=== PATIENT | male | born 1975 | race Caucasian/White ===

== ENCOUNTER 2022-02-07 15:16 | Emergency (ER) | payer OTHER ==
[2022-02-07] MEDS ORDERED: CETIRIZINE HCL 5 MG TABLET ONE (16:26)
[2022-02-07] MEDS ORDERED: DIAZEPAM 5 MG TABLET ONE (16:27)
[2022-02-07] MEDS ORDERED: FAMOTIDINE 20 MG TAB ONE (16:27)
--- NOTE | 2022-02-07 18:16 | EDPHYS ---
Physician Documentation [facility] Name: Mahamed Miranda Age: 47 yrs Sex: Male : 1975 Arrival Date: 02/07/2022 Time: 15:18 Bed 9 Private MD: ED Physician Subhash Higgins HPI: 02/07 16:21 This 47 yrs old Male presents to ER via Ambulatory with complaints of Breathing snw Difficulty. 16:21 The patient has shortness of breath at rest, with light activity. Onset: The snw symptoms/episode began/occurred gradually, 4 day(s) ago, and became persistent. Duration: The symptoms are continuous. Associated signs and symptoms: Pertinent positives: pain to left shoulder and neck. Severity of symptoms: At their worst the symptoms were moderate. The patient has experienced similar episodes in the past. The patient has not recently seen a physician, and does not have an established primary care provider, just [facility] from [place]. Historical: - Allergies: 15:38 Ibuprofen; aa5 - PMHx: 15:38 Asthma; Diabetes mellitus; COPD; aa5 - PSHx: 15:38 None; aa5 - Immunization history:: Adult Immunizations unknown. - Social history:: Smoking status: Patient reports the use of cigarette tobacco products, 4 cigarettes a day . ROS: 16:20 Constitutional: Negative for fever, chills, and weight loss, Eyes: Negative for injury, snw pain, redness, and discharge, ENT: Negative for injury, pain, and discharge, Neck: Negative for injury, pain, and swelling, Cardiovascular: Negative for chest pain, palpitations, and edema, Abdomen/GI: Negative for abdominal pain, nausea, vomiting, diarrhea, and constipation, Back: Negative for injury and pain, : Negative for injury, bleeding, discharge, and swelling, Skin: Negative for injury, rash, and discoloration, Neuro: Negative for headache, weakness, numbness, tingling, and seizure, Psych: Negative for depression, anxiety, suicide ideation, homicidal ideation, and hallucinations. 16:20 Respiratory: Positive for cough, shortness of breath, at rest. 16:20 MS/extremity: Positive for decreased range of motion, tenderness, of the left neck and shoulder. Exam: 16:13 Constitutional: This is a well developed, well nourished patient who is awake, alert, snw and in no acute distress. Head/Face: Normocephalic, atraumatic. Eyes: Pupils equal round and reactive to light, extra-ocular motions intact. Lids and lashes normal. Conjunctiva and sclera are non-icteric and not injected. Cornea within normal limits. Periorbital areas with no swelling, redness, or edema. Neck: Trachea midline, no thyromegaly or masses palpated, and no cervical lymphadenopathy. Supple, full range of motion without nuchal rigidity, or vertebral point tenderness. No Meningismus. Chest/axilla: Normal chest wall appearance and motion. Nontender with no deformity. No lesions are appreciated. Cardiovascular: Regular rate and rhythm with a normal S1 and S2. No gallops, murmurs, or rubs. Normal PMI, no JVD. No pulse deficits. Abdomen/GI: Soft, non-tender, with normal bowel sounds. No distension or tympany. No guarding or rebound. No evidence of tenderness throughout. Back: No spinal tenderness. No costovertebral tenderness. Full range of motion. Skin: Warm, dry with normal turgor. Normal color with no rashes, no lesions, and no evidence of cellulitis. Neuro: Awake and alert, GCS 15, oriented to person, place, time, and situation. Cranial nerves II-XII grossly intact. Motor strength 5/5 in all extremities. Sensory grossly intact. Cerebellar exam normal. Normal gait. Psych: Awake, alert, with orientation to person, place and time. Behavior, mood, and affect are within normal limits. 16:13 ENT: Posterior pharynx: erythema, that is moderate. 16:13 Respiratory: the patient does not display signs of respiratory distress, Respirations: normal, Breath sounds: bronchial sounds, that are moderate, are heard in the right middle lobe and right lower lobe. 16:13 Musculoskeletal/extremity: Extremities: grossly normal except: noted in the left arm: decreased ROM, Circulation is intact in all extremities. Vital Signs: 15:37 BP 127 / 87; Pulse 85; Resp 20 S; Temp 97.9(TE); Pulse Ox 99% on R/A; Weight 108.86 kg aa5 (R); Height 6 ft. 5 in. (195.58 cm) (R); 15:37 Body Mass Index 28.46 (108.86 kg, 195.58 cm) aa5 MDM: 16:05 Patient medically screened. snw 16:12 Data reviewed: vital signs, nurses notes. Data interpreted: Pulse oximetry: on room air snw is 99 %. Interpretation: normal. 02/07 16:12 Order name: Strep; Complete Time: 18:10 snw 02/07 16:25 Order name: Glucose, Ancillary Testing; Complete Time: 16:31 EDMS 02/07 18:09 Order name: Throat Culture EDMS 02/07 16:12 Order name: FSBS; Complete Time: 16:13 snw Administered Medications: 16:18 Drug: Valium (diazepam) 5 mg Route: PO; aa5 18:45 Follow up: Response: No adverse reaction aa5 16:18 Drug: Pepcid (famotidine) 20 mg Route: PO; aa5 18:45 Follow up: Response: No adverse reaction aa5 16:18 Drug: ZyrTEC - Cetirizine 10 mg Route: PO; aa5 18:45 Follow up: Response: No adverse reaction aa5 Point of Care Testing: Blood Glucose: 16:13 Blood Glucose: 175 mg/dL; aa5 Ranges: Critical Glucose Levels:Adult <50 mg/dl or >400 mg/dl <40 mg/dl or >180 mg/dl Disposition Summary: 02/07/22 18:15 Discharge Ordered Location: Home snw Condition: Stable snw Diagnosis - Muscle spasm snw - Allergic rhinitis, unspecified snw - Patient's unintentional underdosing of medication regimen for other reason snw Followup: snw - With: Emergency Department - When: As needed - Reason: Worsening of condition Followup: snw - With: Private Physician - When: 2 - 3 days - Reason: Recheck today's complaints, Continuance of care, Re-evaluation by your physician Discharge Instructions: - Discharge Summary Sheet snw - Cervical Radiculopathy snw - Muscle Strain snw - Allergic Rhinitis, Adult snw Forms: - Medication Reconciliation Form snw - Thank You Letter snw - Antibiotic Education snw - Prescription Opioid Use snw - Work release form iw Prescriptions: - Jardiance 10 mg Oral tablet - take 1 tablet by ORAL route once daily in the morning; 30 tablet; Refills: 0, snw Product Selection Permitted - fenofibrate 160 mg Oral tablet - take 1 tablet by ORAL route once daily; 30 tablet; Refills: 0, Product snw Selection Permitted - Neurontin 300 mg Oral Capsule - take 1 capsule by ORAL route At bedtime; 20 capsule; Refills: 0, Product snw Selection Permitted - Zyrtec 10 mg Oral Tablet - take 1 tablet by ORAL route once daily As needed; 20 tablet; Refills: 0, snw Product Selection Permitted - Pepcid 20 mg Oral Tablet - take 1 tablet by ORAL route once daily; 20 tablet; Refills: 0, Product snw Selection Permitted - albuterol sulfate 90 mcg/actuation Inhalation HFA aerosol inhaler - inhale 2 puff by INHALATION route every 4-6 hours; 1 Inhaler; Refills: 0, snw Product Selection Permitted Signatures: Dispatcher [employer] Cristiane Hernandez, PATTERNMAKER PRESSURE CAST-C PATTERNMAKER PRESSURE CAST-Rezaw Gertrude Diggs, RN RN aa5
--- NOTE | 2022-02-07 18:16 | ER ---
Nurse's Notes [facility] Name: Mahamed Miranda Age: 47 yrs Sex: Male : 1975 Arrival Date: 02/07/2022 Time: 15:18 Bed 9 Private MD: Diagnosis: Muscle spasm;Allergic rhinitis, unspecified;Patient's unintentional underdosing of medication regimen for other reason Presentation: 02/07 15:37 Chief complaint: Patient states: pain to left side of neck radiating to left side of aa5 chest that began 3-4 days ago, pt also reports wheezing and hx of asthma. Coronavirus screen: shortness of breath. Ebola Screen: Patient denies travel to an Ebola-affected area in the 21 days before illness onset. Initial Sepsis Screen: Does the patient meet any 2 criteria? No. Patient's initial sepsis screen is negative. Does the patient have a suspected source of infection? No. Patient's initial sepsis screen is negative. Risk Assessment: Do you want to hurt yourself or someone else? Patient reports no desire to harm self or others. Onset of symptoms was January 2022. 15:37 Method Of Arrival: Ambulatory aa5 15:37 Acuity: ISMAEL 3 aa5 Historical: - Allergies: 15:38 Ibuprofen; aa5 - PMHx: 15:38 Asthma; Diabetes mellitus; COPD; aa5 - PSHx: 15:38 None; aa5 - Immunization history:: Adult Immunizations unknown. - Social history:: Smoking status: Patient reports the use of cigarette tobacco products, 4 cigarettes a day . Assessment: 16:18 Reassessment: Patient is alert, oriented x 3, equal unlabored respirations, skin aa5 warm/dry/pink. 18:45 Reassessment: Patient is alert, oriented x 3, equal unlabored respirations, skin aa5 warm/dry/pink. Vital Signs: 15:37 BP 127 / 87; Pulse 85; Resp 20 S; Temp 97.9(TE); Pulse Ox 99% on R/A; Weight 108.86 kg aa5 (R); Height 6 ft. 5 in. (195.58 cm) (R); 15:37 Body Mass Index 28.46 (108.86 kg, 195.58 cm) aa5 ED Course: 15:18 Patient arrived in ED. rg4 15:23 Cristiane Mariano FNP-C [facility] snw 15:23 Subhash Higgins MD is Attending Physician. snw 15:36 Arm band placed on. aa5 15:37 Triage completed. aa5 16:18 Strep swab sent to lab. aa5 18:45 No provider procedures requiring assistance completed. Patient did not have IV access aa5 during this emergency room visit. Administered Medications: 16:18 Drug: Valium (diazepam) 5 mg Route: PO; aa5 18:45 Follow up: Response: No adverse reaction aa5 16:18 Drug: Pepcid (famotidine) 20 mg Route: PO; aa5 18:45 Follow up: Response: No adverse reaction aa5 16:18 Drug: ZyrTEC - Cetirizine 10 mg Route: PO; aa5 18:45 Follow up: Response: No adverse reaction aa5 Medication: 18:45 VIS not applicable for this client. aa5 Point of Care Testing: Blood Glucose: 16:13 Blood Glucose: 175 mg/dL; aa5 Ranges: Outcome: 18:15 Discharge ordered by . snw 18:45 Discharged to home ambulatory. aa5 18:45 Condition: stable 18:45 Discharge instructions given to patient, Instructed on discharge instructions, follow up and referral plans. medication usage, Demonstrated understanding of instructions, follow-up care, medications, Prescriptions given X x6 18:47 Patient left the ED. aa5 Signatures: Cristiane Mariano FNP-C FNP-Gertrude Michelle RN RN aa5 Judy Ly rg4
[2022-02-09 07:26] VITALS: BP 127/87; TEMP 97.9; O2SAT 99
== END 2022-02-07 18:47 | disposition home or self-care (01) ==
LOC: ER 15:16
DX: M62.838 Other muscle spasm (principal); J30.9 Allergic rhinitis, unspecified; Z91.128 Patient's intentional underdosing of medication regimen for other reason; J44.9 Chronic obstructive pulmonary disease, unspecified; F17.210 Nicotine dependence, cigarettes, uncomplicated; Z88.6 Allergy status to analgesic agent
CPT/HCPCS: 82947; 87070; 87081; 99283

== ENCOUNTER 2022-05-05 04:43 | Emergency (ER) | payer OTHER ==
--- NOTE | 2022-05-05 05:16 | EDPHYS ---
Physician Documentation [facility] Name: Mahamed Miranda Age: 47 yrs Sex: Male : 1975 Arrival Date: 05/05/2022 Time: 04:48 Bed 17 Private MD: ED Physician Subhash Higgins HPI: 05/05 05:12 This 47 yrs old Male presents to ER via Ambulatory with complaints of Facial mehul Swelling, Ear Pain, Mouth Problem. 05:12 The patient presents with pain. The complaints affect the upper left second molar. mehul Onset: The symptoms/episode began/occurred this morning. Modifying factors: The symptoms are alleviated by nothing, the symptoms are aggravated by nothing. Associated signs and symptoms: The patient has no apparent associated signs or symptoms. Severity of symptoms: At their worst the symptoms were mild in the emergency department the symptoms are unchanged. The patient has experienced similar episodes in the past, several times. Historical: - Allergies: 05:01 Ibuprofen; aa9 - Home Meds: 05:01 Albuterol Inhl [Active]; Jardiance oral [Active]; aa9 - PMHx: 05:01 Asthma; COPD; diabetes mellitus; aa9 - PSHx: 05:01 None; aa9 - Immunization history:: Client reports receiving the 2nd dose of the Covid vaccine. - Social history:: Smoking status: Patient denies any tobacco usage or history of. ROS: 05:13 Constitutional: Negative for fever, chills, and weight loss, Eyes: Negative for injury, mehul pain, redness, and discharge, Neck: Negative for injury, pain, and swelling, Cardiovascular: Negative for chest pain, palpitations, and edema, Respiratory: Negative for shortness of breath, cough, wheezing, and pleuritic chest pain, Abdomen/GI: Negative for abdominal pain, nausea, vomiting, diarrhea, and constipation, Back: Negative for injury and pain, : Negative for injury, bleeding, discharge, and swelling, MS/Extremity: Negative for injury and deformity, Skin: Negative for injury, rash, and discoloration, Neuro: Negative for headache, weakness, numbness, tingling, and seizure, Psych: Negative for depression, anxiety, suicide ideation, homicidal ideation, and hallucinations, Allergy/Immunology: Negative for hives, rash, and allergies, Endocrine: Negative for neck swelling, polydipsia, polyuria, polyphagia, and marked weight changes, Hematologic/Lymphatic: Negative for swollen nodes, abnormal bleeding, and unusual bruising. 05:13 ENT: Positive for dental pain, Teeth pain Exam: 05:13 Constitutional: This is a well developed, well nourished patient who is awake, alert, mehul and in no acute distress. Eyes: Pupils equal round and reactive to light, extra-ocular motions intact. Lids and lashes normal. Conjunctiva and sclera are non-icteric and not injected. Cornea within normal limits. Periorbital areas with no swelling, redness, or edema. ENT: Nares patent. No nasal discharge, no septal abnormalities noted. Tympanic membranes are normal and external auditory canals are clear. Oropharynx with no redness, swelling, or masses, exudates, or evidence of obstruction, uvula midline. Mucous membranes moist. Neck: Trachea midline, no thyromegaly or masses palpated, and no cervical lymphadenopathy. Supple, full range of motion without nuchal rigidity, or vertebral point tenderness. No Meningismus. Chest/axilla: Normal chest wall appearance and motion. Nontender with no deformity. No lesions are appreciated. Cardiovascular: Regular rate and rhythm with a normal S1 and S2. No gallops, murmurs, or rubs. Normal PMI, no JVD. No pulse deficits. Respiratory: Lungs have equal breath sounds bilaterally, clear to auscultation and percussion. No rales, rhonchi or wheezes noted. No increased work of breathing, no retractions or nasal flaring. Abdomen/GI: Soft, non-tender, with normal bowel sounds. No distension or tympany. No guarding or rebound. No evidence of tenderness throughout. Back: No spinal tenderness. No costovertebral tenderness. Full range of motion. Skin: Warm, dry with normal turgor. Normal color with no rashes, no lesions, and no evidence of cellulitis. MS/ Extremity: Pulses equal, no cyanosis. Neurovascular intact. Full, normal range of motion. Neuro: Awake and alert, GCS 15, oriented to person, place, time, and situation. Cranial nerves II-XII grossly intact. Motor strength 5/5 in all extremities. Sensory grossly intact. Cerebellar exam normal. Normal gait. Psych: Awake, alert, with orientation to person, place and time. Behavior, mood, and affect are within normal limits. 05:13 Head/face: Noted is swelling, tenderness, that is mild, of the upper left second molar. Vital Signs: 04:59 BP 119 / 75; Pulse 84; Resp 20 S; Temp 98.2(O); Pulse Ox 95% on R/A; Weight 108.86 kg aa9 (R); Height 6 ft. 5 in. (195.58 cm) (R); 04:59 Body Mass Index 28.46 (108.86 kg, 195.58 cm) aa9 MDM: 04:54 Patient medically screened. [place] 05:14 Differential diagnosis: dental caries, dental abscess. Data reviewed: vital signs, [place] nurses notes. Data interpreted: cutter banana room: rate is 84 beats/min, rhythm is regular, Pulse oximetry: on room air. Test interpretation: by ED physician or midlevel provider: ECG. Counseling: I had a detailed discussion with the patient and/or guardian regarding: the historical points, exam findings, and any diagnostic results supporting the discharge/admit diagnosis, the need for outpatient follow up, for definitive care, a dentist, an oral maxilofacial specialist. Administered Medications: 05:20 Drug: Augmentin (Amoxicillin-Clavulanate) 875 mg Route: PO; ke1 05:38 Follow up: Response: No adverse reaction ke1 Disposition Summary: 05/05/22 05:16 Discharge Ordered Location: Home mehul Problem: new mehul Symptoms: have improved mehul Condition: Stable mehul Diagnosis - Dental caries, unspecified mehul - Dental root caries mehul Followup: mehul - With: Private Physician - When: 2 - 3 days - Reason: Recheck today's complaints, Continuance of care, Re-evaluation by your physician Followup: mehul - With: Obdulio Garcia DDS - When: 2 - 3 days - Reason: Recheck today's complaints, Continuance of care, Re-evaluation by your physician Discharge Instructions: - Discharge Summary Sheet mehul - Dental Caries, Adult mehul - Dental Pain mehul - Dental Pain, [id number] mehul - Diet and Dental Disease mehul - Dental Caries, Adult, [id number] mehul Forms: - Medication Reconciliation Form mehul - Thank You Letter mehul - Antibiotic Education mehul - Prescription Opioid Use mehul - Work release form ke1 Prescriptions: - Augmentin 875-125 mg Oral Tablet - take 1 tablet by ORAL route every 12 hours for 7 days; 14 tablet; Refills: 0, [place] Product Selection Permitted - Tylenol-Codeine #3 300 mg-30 mg Oral - take 2 tablet by ORAL route every 6 hours; 20 tablet; Refills: 0, Product [place] Selection Permitted Signatures: Subhash Higgins, Jenn Ley MD, cha RN RN ke1 Shagufta Taylor RN RN aa9
--- NOTE | 2022-05-05 05:16 | ER ---
Nurse's Notes [facility] Name: Mahamed Miranda Age: 47 yrs Sex: Male : 1975 Arrival Date: 05/05/2022 Time: 04:48 Bed 17 Private MD: Diagnosis: Dental caries, unspecified;Dental root caries Presentation: 05/05 04:59 Chief complaint: Patient states: My left side of my face is swollen, I think it has aa9 something to do with my tooth pain during these past few days. Coronavirus screen: Vaccine status: Patient reports receiving the 2nd dose of the covid vaccine. Initial Sepsis Screen: Does the patient meet any 2 criteria? No. Patient's initial sepsis screen is negative. Does the patient have a suspected source of infection? No. Patient's initial sepsis screen is negative. Risk Assessment: Do you want to hurt yourself or someone else? Patient reports no desire to harm self or others. Onset of symptoms was May 05, 2022. 04:59 Method Of Arrival: Ambulatory aa9 04:59 Acuity: ISMAEL 4 aa9 05:40 Ebola Screen: No symptoms or risks identified at this time. ke1 Triage Assessment: 05:01 General: Appears comfortable, Behavior is calm, cooperative, appropriate for age. Pain: aa9 Complains of pain in mouth. EENT:. Neuro: Level of Consciousness is awake, alert, obeys commands, Oriented to person, place, time, situation. Cardiovascular: Capillary refill < 3 seconds Patient's skin is warm and dry. Respiratory: Airway is patent Respiratory effort is even, unlabored. GI: No signs and/or symptoms were reported involving the gastrointestinal system. : No signs and/or symptoms were reported regarding the genitourinary system. Derm: Skin is intact, is healthy with good turgor. Musculoskeletal: No signs and/or symptoms reported regarding the musculoskeletal system. Historical: - Allergies: 05:01 Ibuprofen; aa9 - Home Meds: 05:01 Albuterol Inhl [Active]; Jardiance oral [Active]; aa9 - PMHx: 05:01 Asthma; COPD; diabetes mellitus; aa9 - PSHx: 05:01 None; aa9 - Immunization history:: Client reports receiving the 2nd dose of the Covid vaccine. - Social history:: Smoking status: Patient denies any tobacco usage or history of. Screenin:16 [facility] ED Fall Risk Assessment (Adult) History of falling in the last 3 months, ke1 including since admission No falls in past 3 months (0 pts) Confusion or Disorientation No (0 pts) Intoxicated or Sedated No (0 pts) Impaired Gait No (0 pts) Mobility Assist Device Used No (0 pt) Altered Elimination No (0 pt) Score/Fall Risk Level 0 - 2 = Low Risk. Abuse screen: Denies threats or abuse. Nutritional screening: No deficits noted. Tuberculosis screening: No symptoms or risk factors identified. Vital Signs: 04:59 BP 119 / 75; Pulse 84; Resp 20 S; Temp 98.2(O); Pulse Ox 95% on R/A; Weight 108.86 kg aa9 (R); Height 6 ft. 5 in. (195.58 cm) (R); 04:59 Body Mass Index 28.46 (108.86 kg, 195.58 cm) aa9 ED Course: 04:48 Patient arrived in ED. ja2 04:54 Jenn Crook, ZAN is Primary Nurse. ke1 04:54 Subhash Higgins MD is Attending Physician. mehul 05:00 Triage completed. aa9 05:02 Arm band placed on. aa9 05:02 Patient has correct armband on for positive identification. Bed in low position. Call aa9 light in reach. 05:15 Obdulio Garcia DDS is Referral Physician. [facility] 05:17 No provider procedures requiring assistance completed. Patient did not have IV access ke1 during this emergency room visit. Administered Medications: 05:20 Drug: Augmentin (Amoxicillin-Clavulanate) 875 mg Route: PO; ke1 05:38 Follow up: Response: No adverse reaction ke1 Medication: 05:17 VIS not applicable for this client. ke1 Outcome: 05:16 Discharge ordered by . mehul 05:38 Discharged to home ambulatory. ke1 05:40 Condition: good ke1 05:40 Discharge instructions given to patient. 05:40 Patient left the ED. ke1 Signatures: Subhash Higgins MD MD cha Alexander, Jessica ja2 Jenn Crook RN RN ke1 Shagufta Taylor RN RN aa9
[2022-05-05] MEDS ORDERED: AMOX/K CLAV 875 MG TAB ONE (05:20)
[2022-05-05 05:45] VITALS: BP 119/75; TEMP 98.2; O2SAT 95
== END 2022-05-05 05:40 | disposition home or self-care (01) ==
LOC: ER 04:43
DX: K02.7 Dental root caries (principal); K02.9 Dental caries, unspecified; E11.9 Type 2 diabetes mellitus without complications; J44.9 Chronic obstructive pulmonary disease, unspecified; Z88.6 Allergy status to analgesic agent
CPT/HCPCS: 99283

== ENCOUNTER 2022-10-23 01:38 | Emergency (ER) | payer OTHER ==
[2022-10-23] MEDS ORDERED: DIPHENHYDRAMINE 50 MG/ML VIAL ONE (03:49)
[2022-10-23] MEDS ORDERED: KETOROLAC 30 MG/ML INJ ONE (03:49)
[2022-10-23] MEDS ORDERED: METOCLOPRAMIDE 10 MG/2mL INJ ONE (03:49)
[2022-10-23] MEDS ORDERED: NA CHLORIDE 0.9% 1,000 ML ONE (03:49)
[2022-10-23 04:04] LABS: Absolute Lymphocytes (CBC) 2.3 K/uL (0.7-4.9); Hematocrit 49.6 % (39.6-49.0); Lymphocytes % 23.9 % (15.3-44.8); MCV 91.1 fL (80-100); MPV 7.2 fL (7.6-11.3); RBC Red Blood Cell Count 5.45 M/uL (4.33-5.43)
[2022-10-23 04:25] LABS: ALT/SGPT 23 U/L (16-61); Albumin 3.7 g/dL (3.4-5.0); Alkaline Phosphatase 70 U/L (45-117); BUN Blood Urea Nitrogen 12 mg/dL (7-18); Bicarbonate 25 mEq/L (21-32); Bilirubin Total 0.3 mg/dL (0.2-1.0); Glomerular Filtration Rate 108 ml/min (=/>90); Glucose Level 160 mg/dL (74-106); Lipase 44 U/L (13-75); Potassium 3.5 mEq/L (3.5-5.1); Sodium Level 141 mEq/L (136-145); Troponin High Sensitivity 3.4 pg/mL (<58.9)
[2022-10-23 04:42] LABS: AST/SGOT < 3 U/L (15-37); Bilirubin Direct < 0.1 mg/dL (0-0.2); Bilirubin Indirect, Calculated ND mg/dL (0.2-0.8)
--- NOTE | 2022-10-23 06:25 | ER ---
Nurse's Notes [facility] Name: Mahamed Miranda Age: 47 yrs Sex: Male : 1975 Arrival Date: 10/23/2022 Time: 01:38 Bed 4 Private MD: Diagnosis: Uncontrolled diabetes, hyperglycemia, anxiety about health Presentation: 10/23 02:51 Chief complaint: Patient states: Headache, shaking began at 5pm yesterday. He is out of diabetic medication for 3 days. Coronavirus screen: Vaccine status: Patient reports receiving the 2nd dose of the covid vaccine. Ebola Screen: No symptoms or risks identified at this time. Onset of symptoms was October 21, 2022. Care prior to arrival: Medication(s) given: Tylenol. 02:51 Method Of Arrival: Ambulatory 02:51 Acuity: ISMAEL 3 03:49 Initial Sepsis Screen: Does the patient meet any 2 criteria? No. Patient's initial lg3 sepsis screen is negative. Does the patient have a suspected source of infection? No. Patient's initial sepsis screen is negative. Risk Assessment: Do you want to hurt yourself or someone else? Patient reports no desire to harm self or others. Triage Assessment: 02:51 Headache History: The patient has had previous headaches and this one is similar to previous episodes. Neuro: No deficits noted. 03:50 General: Appears in no apparent distress. uncomfortable. Pain: Pain currently is 6 out lg3 of 10 on a pain scale. Pain began 2-3 days ago. Also complains of photophobia, inability to concentrate. Historical: - Allergies: 02:58 Ibuprofen; - Home Meds: 02:58 Albuterol Inhl [Active]; Jardiance Oral [Active]; - PMHx: 02:58 Asthma; COPD; diabetes mellitus; - Immunization history:: Adult Immunizations up to date. - Social history:: Smoking status: Patient reports the use of cigarette tobacco products, denies chronic smoking, but will smoke occasionally. - Family history:: not pertinent. Screenin:48 [facility] ED Fall Risk Assessment (Adult) History of falling in the last 3 months, lg3 including since admission No falls in past 3 months (0 pts). Abuse screen: Denies threats or abuse. Denies injuries from another. Nutritional screening: No deficits noted. Tuberculosis screening: No symptoms or risk factors identified. Assessment: 03:48 General: Appears in no apparent distress. comfortable, Behavior is calm, cooperative. lg3 Pain: Complains of pain in head. Neuro: No deficits noted. Bower Agitation-Sedation Scale (RASS): 0 - Alert and Calm Level of Consciousness is awake, alert, obeys commands, Oriented to person, place, time, situation. Cardiovascular: No deficits noted. Denies chest pain, shortness of breath, Capillary refill < 3 seconds Clubbing of nail beds is absent JVD is absent Patient's skin is warm and dry. Respiratory: No deficits noted. Airway is patent Respiratory effort is even, unlabored, Respiratory pattern is regular, symmetrical. GI: No deficits noted. No signs and/or symptoms were reported involving the gastrointestinal system. Abdomen is round non-distended. : No deficits noted. No signs and/or symptoms were reported regarding the genitourinary system. EENT: No deficits noted. No signs and/or symptoms were reported regarding the EENT system. Derm: No deficits noted. No signs and/or symptoms reported regarding the dermatologic system. Skin is intact, is healthy with good turgor, Skin is dry, Skin is normal, Skin temperature is warm. Musculoskeletal: No deficits noted. No signs and/or symptoms reported regarding the musculoskeletal system. Circulation, motion, and sensation intact. Range of motion: intact in all extremities. 05:05 Reassessment: Patient appears in no apparent distress at this time. No changes from lg3 previously documented assessment. Patient and/or family updated on plan of care and expected duration. Pain level reassessed. Patient is alert, oriented x 3, equal unlabored respirations, skin warm/dry/pink. Patient states feeling better. 06:19 Reassessment: Patient appears in no apparent distress at this time. No changes from lg3 previously documented assessment. Patient and/or family updated on plan of care and expected duration. Pain level reassessed. Patient is alert, oriented x 3, equal unlabored respirations, skin warm/dry/pink. Patient states feeling better. Patient states symptoms have improved. Vital Signs: 02:51 BP 139 / 86; Pulse 84; Resp 20; Temp 97.6; Pulse Ox 99% ; Weight 104.33 kg; Height 6 kl ft. 5 in. ; Pain 8/10; 05:05 BP 136 / 84; Pulse 81; Resp 18 S; Pulse Ox 99% on R/A; lg3 06:19 BP 138 / 88; Pulse 80; Resp 18 S; Pulse Ox 99% on R/A; lg3 02:51 Body Mass Index 27.27 (104.33 kg, 195.58 cm) kl 02:51 Pain Scale: Adult kl Shelly Coma Score: 06:17 Eye Response: spontaneous(4). Motor Response: obeys commands(6). Verbal Response: sp4 oriented(5). Total: 15. ED Course: 01:41 Patient arrived in ED. ja2 02:54 Triage completed. kl 02:56 Krishan Beltrán MD is Attending Physician. sp4 03:46 Marisa Ferreira, ZAN is Primary Nurse. lg3 03:46 Inserted saline lock: 22 gauge in right antecubital area, using aseptic technique. lg3 Blood collected. 03:47 Troponin HS Sent. lg3 03:47 LFT's Sent. lg3 03:47 CBC with Diff Sent. lg3 03:47 Basic Metabolic Panel Sent. lg3 03:48 Patient has correct armband on for positive identification. Placed in gown. Bed in low lg3 position. Call light in reach. Side rails up X 1. Client placed on continuous cardiac and pulse oximetry monitoring. NIBP monitoring applied. monitor car operator on. Door closed. Noise minimized. Warm blanket given. 03:49 Arm band placed on right wrist. lg3 06:23 Joseph Ramey MD is Referral Physician. sp4 06:37 No provider procedures requiring assistance completed. IV discontinued, intact, jb4 bleeding controlled, No redness/swelling at site. Pressure dressing applied. Administered Medications: 03:47 Drug: NS 0.9% IV 1000 ml Route: IV; Rate: 1 bolus; Site: right antecubital; lg3 03:47 Drug: metoCLOPramide IVP 10 mg Route: IVP; Site: right antecubital; lg3 03:47 Drug: Ketorolac IVP 30 mg Route: IVP; Site: right antecubital; lg3 03:48 Drug: diphenhydrAMINE IVP 25 mg Route: IVP; Site: right antecubital; lg3 Outcome: 06:24 Discharge ordered by . sp4 06:36 Discharged to home ambulatory. jb4 06:36 Condition: stable 06:36 Discharge instructions given to patient, Instructed on discharge instructions, follow up and referral plans. no drinking with medication, no driving heavy equipment, medication usage, Demonstrated understanding of instructions, follow-up care, medications, Prescriptions given X 3. 06:37 Patient left the ED. jb4 Signatures: Jaci Calixto RN RN kl Bryson, James, RN RN jb4 Marisa Ferreira RN RN lg3 Leann Sweeney Sergey, MD MD sp4 Corrections: (The following items were deleted from the chart) 04:05 03:48 LIPASE+C.LAB.BRZ drawn and sent. lg3 EDMS
--- NOTE | 2022-10-23 06:25 | EDPHYS ---
Physician Documentation [facility] Name: Mahamed Miranda Age: 47 yrs Sex: Male : 1975 Arrival Date: 10/23/2022 Time: 01:38 Bed 4 Private MD: ED Physician Krishan Beltrán HPI: 10/23 02:56 This 47 yrs old Male presents to ER via Ambulatory with complaints of sp4 Problems with Blood Sugar, Headache. 06:17 This very pleasant 47-year-old male who has a history of diabetes type 2 takes sp4 Jardiance and metoprolol daily presents with anxiety about health secondary to him being out of his medicines for the past 3 days, patient developed headaches 24 hours ago also some abdominal aches, shaky hands, nausea, and feeling unwell overall , patient is here desiring his diabetes to be checked and restarted on his regular medicines.. Historical: - Allergies: 02:58 Ibuprofen; kl - Home Meds: 02:58 Albuterol Inhl [Active]; Jardiance Oral [Active]; kl - PMHx: 02:58 Asthma; COPD; diabetes mellitus; kl - Immunization history:: Adult Immunizations up to date. - Social history:: Smoking status: Patient reports the use of cigarette tobacco products, denies chronic smoking, but will smoke occasionally. - Family history:: not pertinent. ROS: 06:17 Constitutional: Negative for fever, chills, and weight loss, positive for feeling sp4 unwell. Positive for anxiety positive for bilateral hand tremors Eyes: Negative for injury, pain, redness, and discharge, ENT: Negative for injury, pain, and discharge, Neck: Negative for injury, pain, and swelling, Cardiovascular: Negative for chest pain, and edema, Respiratory: Negative for shortness of breath, cough, wheezing, and pleuritic chest pain, Abdomen/GI: Negative for nausea, vomiting, diarrhea, and constipation, positive for abdominal ache Back: Negative for injury and pain, : Negative for injury, bleeding, discharge, and swelling, MS/Extremity: Negative for injury and deformity, Skin: Negative for injury, rash, and discoloration, Neuro: positive for headache negative for weakness, numbness, tingling, and seizure, Psych: Negative for depression, anxiety, Allergy/Immunology: Negative for hives, rash, and allergies Endocrine: Negative for neck swelling, polydipsia, polyuria, polyphagia, and weight changes Hematologic/Lymphatic: Negative for swollen nodes, abnormal bleeding, and unusual bruising Exam: 06:17 Constitutional: This is a well developed, well nourished patient who is awake, alert, sp4 and in no acute distress. Head/Face: Normocephalic, atraumatic. Eyes: Pupils equal round and reactive to light, extra-ocular motions intact. Lids and lashes normal. Conjunctiva and sclera are not injected. Cornea within normal limits. Periorbital areas with no swelling, redness, or edema. ENT: Nares patent. No nasal discharge, no septal abnormalities noted. Tympanic membranes are normal and external auditory canals are clear. Oropharynx with no redness, swelling, or masses, exudates, or evidence of obstruction, uvula midline. Mucous membranes moist. Neck: Trachea midline, no thyromegaly or masses palpated, and no cervical lymphadenopathy. Supple, full range of motion without nuchal rigidity, or vertebral point tenderness. No Meningismus. Chest/axilla: Normal chest wall appearance and motion. Nontender with no deformity. No lesions are appreciated. Cardiovascular: Regular rate and rhythm with a normal S1 and S2. No gallops, murmurs, or rubs. Normal PMI, no JVD. No pulse deficits. Respiratory: Lungs have equal breath sounds bilaterally, clear to auscultation and percussion. No rales, rhonchi or wheezes noted. No increased work of breathing, no retractions or nasal flaring. Abdomen/GI: Soft, non-tender, with normal bowel sounds. No distension or tympany. No guarding or rebound. No evidence of tenderness throughout. Back: No spinal tenderness. No costovertebral tenderness. Skin: Warm, dry with normal turgor. Normal color with no rashes, no lesions, and no evidence of cellulitis. MS/ Extremity: Pulses equal, no cyanosis. Neurovascular intact. Full, normal range of motion. Neuro: Awake and alert, GCS 15, oriented to person, place, time, and situation. Cranial nerves II-XII grossly intact. Motor strength 5/5 in all extremities. Sensory grossly intact. Psych: Awake, alert, with orientation to person, place and time. Behavior, mood, and affect are within normal limits Vital Signs: 02:51 BP 139 / 86; Pulse 84; Resp 20; Temp 97.6; Pulse Ox 99% ; Weight 104.33 kg; Height 6 kl ft. 5 in. ; Pain 8/10; 05:05 BP 136 / 84; Pulse 81; Resp 18 S; Pulse Ox 99% on R/A; lg3 06:19 BP 138 / 88; Pulse 80; Resp 18 S; Pulse Ox 99% on R/A; lg3 02:51 Body Mass Index 27.27 (104.33 kg, 195.58 cm) kl 02:51 Pain Scale: Adult kl Shelly Coma Score: 06:17 Eye Response: spontaneous(4). Motor Response: obeys commands(6). Verbal Response: sp4 oriented(5). Total: 15. MDM: 02:56 Patient medically screened. sp4 06:17 Data reviewed: vital signs, nurses notes, old medical records, lab test result(s), CBC, sp4 electrolytes, hepatic panel. ED course: Patient is a 160, no sign of renal failure or electrolyte imbalance. 10/23 02:57 Order name: Basic Metabolic Panel; Complete Time: 06:11 sp4 10/23 02:57 Order name: CBC with Diff; Complete Time: 06:11 sp4 10/23 02:57 Order name: LFT's; Complete Time: 06:11 sp4 10/23 02:57 Order name: Troponin HS; Complete Time: 06:11 sp4 10/23 03:45 Order name: Glucose, Ancillary Testing; Complete Time: 06:11 EDMS 10/23 04:05 Order name: Lipase; Complete Time: 06:11 EDMS 10/23 02:57 Order name: IV Saline Lock; Complete Time: 03:47 sp4 10/23 02:57 Order name: Labs collected and sent; Complete Time: 03:47 sp4 Administered Medications: 03:47 Drug: NS 0.9% IV 1000 ml Route: IV; Rate: 1 bolus; Site: right antecubital; lg3 03:47 Drug: metoCLOPramide IVP 10 mg Route: IVP; Site: right antecubital; lg3 03:47 Drug: Ketorolac IVP 30 mg Route: IVP; Site: right antecubital; lg3 03:48 Drug: diphenhydrAMINE IVP 25 mg Route: IVP; Site: right antecubital; lg3 Disposition Summary: 10/23/22 06:24 Discharge Ordered Location: Home sp4 Problem: new sp4 Symptoms: have improved sp4 Condition: Stable sp4 Diagnosis - Uncontrolled diabetes, hyperglycemia, anxiety about health sp4 Followup: sp4 - With: Private Physician - When: 7 - 10 days - Reason: Followup: sp4 - With: Joseph Ramey MD - When: 7 - 10 days - Reason: Recheck today's complaints Discharge Instructions: - Discharge Summary Sheet sp4 - Diabetes Mellitus Basics sp4 Forms: - Work release form jb4 Prescriptions: - Fioricet 50-300-40 mg Oral capsule - take 1 capsule by ORAL route every 8 hours PRN headache; 30 caplet; Refills: 0, sp4 Product Selection Permitted - Jardiance 10 mg Oral tablet - take 1 tablet by ORAL route daily; 30 tablet; Refills: 0, Product Selection sp4 Permitted - metoprolol succinate 25 mg Oral Tablet, Extended Release 24 hr - take 1 tablet by ORAL route daily; 30 tablet; Refills: 0, Product Selection sp4 Permitted Signatures: Dispatcher [employer] EDJaci Owen, RN RN Marisa Cai RN RN lg3 Krishan Beltrán MD MD sp4 Corrections: (The following items were deleted from the chart) 04:05 03:10 LIPASE+C.LAB.BRZ ordered. EDMS EDMS
[2022-10-23 06:57] VITALS: TEMP 97.6; O2SAT 99
[2022-10-23 07:00] VITALS: BP 138/88
== END 2022-10-23 06:37 | disposition home or self-care (01) ==
LOC: ER 01:38
DX: E11.65 Type 2 diabetes mellitus with hyperglycemia (principal); F41.8 Other specified anxiety disorders; R51.9 Headache, unspecified; R11.0 Nausea; R10.9 Unspecified abdominal pain; Z91.048 Other nonmedicinal substance allergy status; J45.909 Unspecified asthma, uncomplicated; J44.9 Chronic obstructive pulmonary disease, unspecified; Z72.0 Tobacco use
CPT/HCPCS: 85025; 80048; 36415; 82947; 80076; 84484; 83690; 96375; 96374; 99285; J2765; J1200; J7030

== ENCOUNTER 2023-02-23 04:46 | Emergency (ER) | payer OTHER ==
[2023-02-23] MEDS ORDERED: IPRATROPIUM BROM 0.5MG/2.5ML ONE (05:30)
[2023-02-23] MEDS ORDERED: predniSONE 20 MG TAB ONE (05:30)
[2023-02-23] MEDS ORDERED: ALBUTEROL 2.5 MG/3 ML NEB SOL ONE (05:30)
--- NOTE | 2023-02-23 06:19 | EDPHYS ---
Physician Documentation [facility] Name: Mahamed Miranda Age: 48 yrs Sex: Male : 1975 Arrival Date: 02/23/2023 Time: 04:46 Bed 5 Private MD: ED Physician Kaela Mack HPI: 02/23 05:43 This 48 yrs old Male presents to ER via Ambulatory with complaints of heart racing. sd2 05:43 48 yo M presents with CC of feeling as if his heart is racing. He reports difficulty sd2 sleeping last night due to wheezing and issues with his asthma 2/2 allergies. 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 States recently tested negative. Denies fever, cough, CP, n/v/d. Reports his home albuterol inhaler has so he has not used it.. Historical: - Allergies: 04:57 Ibuprofen; as6 - PMHx: 04:57 Asthma; COPD; diabetes mellitus; as6 - PSHx: 04:57 None; as6 - Immunization history:: Client reports receiving the 2nd dose of the Covid vaccine. - Social history:: Smoking status: Patient reports the use of cigarette tobacco products, smokes one-half pack cigarettes per day. ROS: 05:43 Constitutional: Negative for fever, chills, and weight loss, Eyes: Negative for injury, sd2 pain, redness, and discharge, 05:43 Abdomen/GI: Negative for abdominal pain, nausea, vomiting, diarrhea. MS/Extremity: Negative for injury and deformity, Skin: Negative for injury, rash, and discoloration, Neuro: Negative for headache, numbness and tingling. 05:43 Cardiovascular: Positive for palpitations, Negative for chest pain, edema, 05:43 Respiratory: Positive for shortness of breath, wheezing, Negative for cough, dyspnea on exertion, Exam: 05:43 Constitutional: This is a well developed, well nourished patient who is awake, alert, sd2 and in no acute distress. Head/Face: Normocephalic, atraumatic. Eyes: EOMI, normal conjunctiva bilaterally Chest/axilla: Normal chest wall appearance and motion. Nontender with no deformity. Cardiovascular: Regular rate and rhythm with a normal S1 and S2. No gallops, murmurs, or rubs. 2+ distal pulses. Respiratory: Lungs have equal breath sounds bilaterally, end-expiratory wheezes present bilaterally. No increased work of breathing, no retractions or nasal flaring. Abdomen/GI: Soft, non-tender, with normal bowel sounds. No guarding or rebound. No evidence of tenderness throughout. Skin: Warm, dry with normal turgor. Normal color with no rashes, no lesions, and no evidence of cellulitis. MS/ Extremity: Pulses equal, no cyanosis. Neurovascular intact. Full, normal range of motion. Ambulatory without difficulty. Psych: Awake, alert, with orientation to person, place and time. Behavior, mood, and affect are within normal limits. 06:14 ECG was reviewed by the Attending Physician. NSR, rate 98, no STEMI criteria sd2 Vital Signs: 04:56 BP 144 / 82; Pulse 96; Resp 20 S; Temp 98.9(O); Pulse Ox 95% on R/A; Weight 104.33 kg as6 (R); Height 6 ft. 5 in. (R); Pain 0/10; 06:00 BP 123 / 59; Pulse 87; Resp 20; Pulse Ox 98% ; jj7 06:36 BP 128 / 75; Pulse 93; Resp 20; Pulse Ox 98% ; Pain 0/10; jj7 04:56 Body Mass Index 27.27 (104.33 kg, 195.58 cm) as6 04:56 Pain Scale: Adult as6 06:36 Pain Scale: Adult jj7 MDM: 04:51 Patient medically screened. sd2 06:14 Differential Diagnosis viral URI, asthma exacerbation, electrolyte abnormality, sd2 arrhythmia among others. Data reviewed: vital signs, nurses notes, lab test result(s), EKG, radiologic studies. I considered the following discharge prescriptions or medication management in the emergency department Medications were administered in the Emergency Department. See MAR. Care significantly affected by the following chronic conditions: Diabetes, Chronic Obstructive Pulmonary Disease. Counseling: I had a detailed discussion with the patient and/or guardian regarding the historical points, exam findings, and any diagnostic results supporting the discharge/admit diagnosis, lab results, radiology results, the need for outpatient follow up, to return to the emergency department if symptoms worsen or persist or if there are any questions or concerns that arise at home. Response to treatment: the patient's symptoms have markedly improved after treatment. ED course: Pt feeling improved with no further wheezing after nebulizer treatment. HR with no signs of arrhythmia on telemetry. EKG with no acute changes. Viral testing studies negative. Will discharge home with new albuterol inhaler and prednisone. Advised of continued supportive care and need for outpatient follow up. Verbalizes understanding of discharge plan and strict return precautions at this time.. 02/23 05:08 Order name: SARS-COV-2 RT PCR; Complete Time: 05:50 sd2 02/23 05:08 Order name: Flu; Complete Time: 05:50 sd2 02/23 05:08 Order name: RSV; Complete Time: 05:50 sd2 02/23 05:08 Order name: XRAY Chest (1 view) sd2 02/23 05:08 Order name: EKG - Nurse/Tech; Complete Time: 05:23 sd2 Administered Medications: 05:22 Drug: predniSONE PO 60 mg PO once Route: PO; rv 06:08 Follow up: Response: No adverse reaction jj7 05:22 Drug: DuoNeb Nebulize (3:1) (2.5 mg - 0.5 mg) 3 ml Nebulizer once Route: Nebulizer; rv 06:08 Follow up: Response: Marked relief of symptoms jj7 Disposition Summary: 02/23/23 06:18 Discharge Ordered Problem: new sd2 Symptoms: have improved sd2 Condition: Stable sd2 Diagnosis - Asthma exacerbation sd2 - Palpitations sd2 Followup: sd2 - With: Private Physician - When: 2 - 3 days - Reason: Recheck today's complaints, Continuance of care, Re-evaluation by your physician Discharge Instructions: - Discharge Summary Sheet sd2 - Palpitations sd2 - Asthma Attack sd2 - Asthma Attack Prevention, Adult sd2 Forms: - Work release form sd2 - Medication Reconciliation Form sd2 - Thank You Letter sd2 - Antibiotic Education sd2 - Prescription Opioid Use sd2 - Patient Portal Instructions sd2 - Leadership Thank You Letter sd2 Prescriptions: - albuterol sulfate 90 mcg/actuation Inhalation HFA Aerosol Inhaler - inhale 2 puff INHALATION route every 4 to 6 hours As needed as needed for sd2 bronchospasm; 1 unit; Refills: 0, Product Selection Permitted - Albuterol Sulfate 2.5 mg /3 mL (0.083 %) Inhalation Solution for Nebulization - inhale 1 unit NEBULIZATION route every 4-6 hours As needed; 30 unit; Refills: sd2 0, Product Selection Permitted - Prednisone 20 mg Oral tablet - take 2 tablets ORAL route once daily for 5 days; 10 tablet; Refills: 0, Product sd2 Selection Permitted Signatures: Dispatcher [employer] Tom Newby RN RN rv Mario Rizvi RN RN as6 Kaela Mack MD MD sd2 Renita Coon RN jj7
--- NOTE | 2023-02-23 06:19 | ER ---
Nurse's Notes [facility] Name: Mahamed Miranda Age: 48 yrs Sex: Male : 1975 Arrival Date: 02/23/2023 Time: 04:46 Bed 5 Private MD: Diagnosis: Asthma exacerbation;Palpitations Presentation: 02/23 04:58 Chief complaint: Patient states: "I woke up and felt like my heart was racing and I as6 feel short of breath". Coronavirus screen: At this time, the client does not indicate any symptoms associated with coronavirus-19. Ebola Screen: No symptoms or risks identified at this time. Initial Sepsis Screen: Does the patient meet any 2 criteria? No. Patient's initial sepsis screen is negative. Does the patient have a suspected source of infection? No. Patient's initial sepsis screen is negative. Risk Assessment: Do you want to hurt yourself or someone else? Patient reports no desire to harm self or others. Onset of symptoms was February 23, 2023. 04:58 Acuity: ISMAEL 3 as6 04:58 Method Of Arrival: Ambulatory as6 Historical: - Allergies: 04:57 Ibuprofen; as6 - PMHx: 04:57 Asthma; COPD; diabetes mellitus; as6 - PSHx: 04:57 None; as6 - Immunization history:: Client reports receiving the 2nd dose of the Covid vaccine. - Social history:: Smoking status: Patient reports the use of cigarette tobacco products, smokes one-half pack cigarettes per day. Screenin:07 [facility] ED Fall Risk Assessment (Adult) History of falling in the last 3 months, jj7 including since admission No falls in past 3 months (0 pts) Confusion or Disorientation No (0 pts) Intoxicated or Sedated No (0 pts) Impaired Gait No (0 pts) Mobility Assist Device Used No (0 pt) Altered Elimination No (0 pt) Score/Fall Risk Level 0 - 2 = Low Risk Oriented to surroundings, Maintained a safe environment. Abuse screen: Denies threats or abuse. Nutritional screening: No deficits noted. Tuberculosis screening: No symptoms or risk factors identified. Assessment: 05:07 General: Appears in no apparent distress. comfortable, Behavior is calm, cooperative, jj7 appropriate for age. Pain: Denies pain. Pain: Pain does not radiate. Pain began suddenly. Cardiovascular: No deficits noted. Respiratory: Breath sounds with wheezes. Vital Signs: 04:56 BP 144 / 82; Pulse 96; Resp 20 S; Temp 98.9(O); Pulse Ox 95% on R/A; Weight 104.33 kg as6 (R); Height 6 ft. 5 in. (R); Pain 0/10; 06:00 BP 123 / 59; Pulse 87; Resp 20; Pulse Ox 98% ; jj7 06:36 BP 128 / 75; Pulse 93; Resp 20; Pulse Ox 98% ; Pain 0/10; jj7 04:56 Body Mass Index 27.27 (104.33 kg, 195.58 cm) as6 04:56 Pain Scale: Adult as6 06:36 Pain Scale: Adult jj7 ED Course: 04:48 Patient arrived in ED. jj6 04:50 Kaela Mack MD is Attending Physician. sd2 04:57 Arm band placed on. as6 04:59 Triage completed. as6 05:07 Renita Coon RN is Primary Nurse. jj7 05:07 Patient has correct armband on for positive identification. Bed in low position. Call jj7 light in reach. Side rails up X 1. Client placed on continuous cardiac and pulse oximetry monitoring. NIBP monitoring applied. electronic device monitor on. Pulse ox on. NIBP on. 05:07 No provider procedures requiring assistance completed. Patient maintains SpO2 jj7 saturation greater than 95% on room air. 05:52 XRAY Chest (1 view) In Process Unspecified. EDMS 06:36 Provided Education on: DISCHARGE INSTRUCTIONS. jj7 06:36 Patient did not have IV access during this emergency room visit. jj7 Administered Medications: 05:22 Drug: predniSONE PO 60 mg PO once Route: PO; rv 06:08 Follow up: Response: No adverse reaction jj7 05:22 Drug: DuoNeb Nebulize (3:1) (2.5 mg - 0.5 mg) 3 ml Nebulizer once Route: Nebulizer; rv 06:08 Follow up: Response: Marked relief of symptoms jj7 Medication: 05:07 VIS not applicable for this client. jj7 Outcome: 06:18 Discharge ordered by . sd2 06:36 Discharged to home ambulatory, jj7 06:36 Condition: improved 06:36 Discharge instructions given to patient, Instructed on discharge instructions, medication usage, Demonstrated understanding of instructions, medications, Prescriptions given X 3, 06:38 Patient left the ED. jj7 Signatures: Dispatcher [employer] EDMS Tom Mendez, RN RN Bailee Huff jj6 Mario Rizvi RN RN as6 Kaela Mack MD MD sd2 Renita Coon RN RN jj7
[2023-02-23 06:44] VITALS: TEMP 98.9
[2023-02-23 06:45] VITALS: O2SAT 98
[2023-02-23 06:46] VITALS: BP 128/75
--- NOTE | 2023-02-24 10:09 | RAD REPORT ---
EXAM DESCRIPTION: RAD - Chest Single View - 02/23/2023 5:51 am CLINICAL HISTORY: The patient is 48 years old and is Male; SOB TECHNIQUE: Frontal view of the chest. COMPARISON: No relevant prior studies available. FINDINGS: Lungs: Mildly prominent interstitial markings. No consolidation. Pleural space: Unremarkable. No pneumothorax. Heart: Unremarkable. Mediastinum: Unremarkable. Bones/joints: No acute findings. IMPRESSION: Mildly prominent interstitial markings. No consolidation. Electronically signed by: Mahamed Gross MD 02/23/2023 6:03 AM CDT Due to temporary technical issues with the PACS/Fluency reporting system, reports are being signed by the in house radiologist without review as a courtesy to ensure prompt reporting. The interpreting r adiologist is fully responsible for the content of the report.
--- NOTE | 2023-02-24 12:18 | EKG ---
Test Date: 2023-02-23 Test Time: 04:58:16 Jewel Diameter Gauger: SAMIR MEASUREMENT RESULTS: Intervals: Rate: 98 VT: 124 QRSD: 78 QT: 354 QTc: 451 [place]: P: 54 VT: 124 QRS: 63 T: 73 INTERPRETIVE STATEMENTS: Normal sinus rhythm Nonspecific T wave abnormality Abnormal ECG No previous ECG available for comparison Electronically Signed On 02-24-23 12:15:05 CDT by Rasta Carl
== END 2023-02-23 06:38 | disposition home or self-care (01) ==
LOC: ER 04:46
DX: J45.901 Unspecified asthma with (acute) exacerbation (principal); R00.2 Palpitations; F17.210 Nicotine dependence, cigarettes, uncomplicated; Z20.822 Contact with and (suspected) exposure to COVID-19; Z88.6 Allergy status to analgesic agent
CPT/HCPCS: 93005; 87635; 87807; 87804 ×2; 71045; 94640; 99285; J7512; J7613; J7644

== ENCOUNTER 2023-03-25 07:40 | Emergency (ER) | payer OTHER ==
--- NOTE | 2023-03-25 08:34 | RAD REPORT ---
EXAM DESCRIPTION: CT - Head Brain Wo Cont - 03/25/2023 8:24 am CLINICAL HISTORY: Headache COMPARISON: none TECHNIQUE: Computed axial tomography of the head was obtained. IV contrast was not requested. All CT scans are performed using dose optimization technique as appropriate and may include automated exposure control or mA/KV adjustment according to patient size. FINDINGS: An intracranial bleed is not seen The ventricles are normal in caliber No significant hypodense areas within the brain visualized No extra-axial fluid collection is noted. Fluid within the sinuses/ mastoids is not seen IMPRESSION: No acute intracranial abnormality is seen If patient's symptoms persist MRI of the brain would be recommended
[2023-03-25 08:35] LABS: Absolute Lymphocytes (CBC) 1.7 K/uL (0.7-4.9); Hematocrit 46.8 % (39.6-49.0); Lymphocytes % 21.2 % (15.3-44.8); MCV 92.9 fL (80-100); MPV 7.1 fL (7.6-11.3); Platelets 229 thou/uL (152-406); RBC Red Blood Cell Count 5.04 M/uL (4.33-5.43)
--- NOTE | 2023-03-25 09:30 | RAD REPORT ---
EXAM DESCRIPTION: Trell Single View03/25/2023 8:31 am CLINICAL HISTORY: Syncope COMPARISON: February 2023 FINDINGS: The lungs appear clear of acute infiltrate. The heart is normal size IMPRESSION: No acute abnormalities displayed
[2023-03-25 09:34] LABS: Albumin 3.7 g/dL (3.4-5.0); Bilirubin Direct 0.1 mg/dL (0-0.2); Bilirubin Indirect, Calculated 0.3 mg/dL (0.2-0.8); Bilirubin Total 0.4 mg/dL (0.2-1.0); Magnesium 1.7 mg/dL (1.6-2.4); Potassium 4.2 mEq/L (3.5-5.1); Protein, Total 6.9 g/dL (6.4-8.2); Troponin High Sensitivity 4.1 pg/mL (<58.9)
--- NOTE | 2023-03-25 09:50 | EDPHYS ---
Physician Documentation [facility] Name: Mahamed Miranda Age: 48 yrs Sex: Male : 1975 Arrival Date: 03/25/2023 Time: 07:40 Bed 8 Private MD: ED Physician Rosie Bartholomew HPI: 03/25 08:19 This 48 yrs old Male presents to ER via Ambulatory with complaints of High Blood sp3 Pressure. 08:19 48-year-old male with history of diabetes, COPD, prior atrial fibrillation now presents sp3 to the ED with chief complaint lightheadedness and near syncope coupled with diaphoresis. 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 He also states he has had a headache since yesterday. While at work today his blood pressure was measured at 200/100 systolically with subsequent normal blood pressures afterwards. Patient states he has felt similar to this in the past when his potassium was low. He currently denies chest pain, shortness of breath, abdominal pain, or any anginal equivalents. Headache is mild but still present. Patient denies overexertion, decreased urine output, known sick contacts, travel history, new meds or foods, herbals or drug use, or any other pertinent history at this time.. Historical: - Allergies: 08:03 Ibuprofen; kc6 - PMHx: 08:03 Asthma; COPD; diabetes mellitus; Atrial fibrillation; kc6 08:24 colon cancer; kc6 - PSHx: 08:03 None; kc6 - Immunization history:: Adult Immunizations up to date. - Social history:: Smoking status: Patient reports the use of cigarette tobacco products, denies chronic smoking, but will smoke occasionally. ROS: 08:21 Constitutional: Negative for fever, chills, and weight loss, Eyes: Negative for injury, sp3 pain, redness, and discharge, Neck: Negative for injury, pain, and swelling, Cardiovascular: Negative for chest pain, palpitations, and edema, Respiratory: Negative for shortness of breath, cough, wheezing, and pleuritic chest pain, Abdomen/GI: Negative for abdominal pain, nausea, vomiting, diarrhea, and constipation, Back: Negative for injury and pain, MS/Extremity: Negative for injury and deformity, Skin: Negative for injury, rash, and discoloration, Psych: Negative for depression, anxiety, suicide ideation, homicidal ideation, and hallucinations, Allergy/Immunology: Negative for hives, rash, and allergies, Endocrine: Negative for neck swelling, polydipsia, polyuria, polyphagia, and marked weight changes, Hematologic/Lymphatic: Negative for swollen nodes, abnormal bleeding, and unusual bruising, 08:21 All other systems are negative, Exam: 08:21 Constitutional: This is a well developed, well nourished patient who is awake, alert, sp3 and in no acute distress. Head/Face: Normocephalic, atraumatic. Eyes: Pupils equal round and reactive to light, extra-ocular motions intact. Lids and lashes normal. Conjunctiva and sclera are non-icteric and not injected. Cornea within normal limits. Periorbital areas with no swelling, redness, or edema. ENT: Nares patent. No nasal discharge, no septal abnormalities noted. External auditory canals are clear. Oropharynx with no redness, swelling, or masses, exudates, or evidence of obstruction, uvula midline. Mucous membranes moist. Neck: Trachea midline, no thyromegaly or masses palpated, and no cervical lymphadenopathy. Supple, full range of motion without nuchal rigidity, or vertebral point tenderness. No Meningismus. Chest/axilla: Normal chest wall appearance and motion. Nontender with no deformity. No lesions are appreciated. Cardiovascular: Regular rate and rhythm with a normal S1 and S2. No gallops, murmurs, or rubs. Normal PMI, no JVD. No pulse deficits. Respiratory: Lungs have equal breath sounds bilaterally, clear to auscultation and percussion. No rales, rhonchi or wheezes noted. No increased work of breathing, no retractions or nasal flaring. Abdomen/GI: Soft, non-tender, with normal bowel sounds. No distension or tympany. No guarding or rebound. No evidence of tenderness throughout. Back: No spinal tenderness. No costovertebral tenderness. Full range of motion. Skin: Warm, dry with normal turgor. Normal color with no rashes, no lesions, and no evidence of cellulitis. MS/ Extremity: Pulses equal, no cyanosis. Neurovascular intact. Full, normal range of motion. Neuro: Awake and alert, GCS 15, oriented to person, place, time, and situation. Cranial nerves II-XII grossly intact. Motor strength 5/5 in all extremities. Sensory grossly intact. Cerebellar exam normal. Normal gait. Psych: Awake, alert, with orientation to person, place and time. Behavior, mood, and affect are within normal limits. 08:25 ECG was reviewed by the Attending Physician. EKG demonstrates normal sinus rhythm at 94 sp3 bpm with normal intervals, normal QRS, normal axis, nonspecific diffuse ST/T changes without evidence of acute ischemia. Vital Signs: 08:01 BP 138 / 90; Pulse 98; Resp 16 S; Temp 98.2(O); Pulse Ox 93% on R/A; Weight 106.59 kg kc6 (R); Height 6 ft. 3 in. (R); 09:12 BP 119 / 79; Pulse 79; Resp 18 S; Pulse Ox 98% on R/A; kc6 08:01 Body Mass Index 29.37 (106.59 kg, 190.5 cm) kc6 MDM: 07:58 Patient medically screened. sp3 08:22 Data reviewed: vital signs, nurses notes, lab test result(s), EKG, radiologic studies. sp3 ED course: 48-year-old male with PMH above now presents with lightheadedness and near syncope with transient hypotension as well as headache. Differential diagnosis is broad and includes dehydration, acute coronary syndrome, hypertensive emergency, ICH, or other abnormality. Patient also later endorsed prior cancerous polyps that were removed 8 years ago in [place]. He states he has occasional blood mixed with stool over the last several months. He denies any lightheadedness prior to today. I am not highly suspicious for profound anemia or GI blood loss. Work-up will include laboratory values, EKG, chest x-ray, CT scan of the head, IV fluids as needed and general observation. Disposition pending work-up and patient course.. 09:48 ED course: Full work-up is negative and patient is improved. We will safely discharge sp3 patient home at this time and he has follow-up with his PCP who is new in [place] in 48 hours. Patient knows he may return here at any time if he feels worse, his symptoms return or he has any further emergency.. 03/25 08:05 Order name: Basic Metabolic Panel; Complete Time: :44 sp3 03/25 08:05 Order name: CBC with Diff; Complete Time: :44 sp3 03/25 08:05 Order name: LFT's; Complete Time: 09:44 sp3 03/25 08:05 Order name: Magnesium; Complete Time: 09:44 sp3 03/25 08:05 Order name: Troponin HS; Complete Time: 09:44 sp3 03/25 08:11 Order name: BNP; Complete Time: 09:44 sp3 03/25 08:05 Order name: XRAY Chest (1 view); Complete Time: 09:44 sp3 03/25 08:11 Order name: CT Head Brain wo Cont; Complete Time: 09:44 sp3 03/25 08:05 Order name: EKG; Complete Time: 08:06 sp3 03/25 08:05 Order name: Cardiac monitoring; Complete Time: 08:23 sp3 03/25 08:05 Order name: EKG - Nurse/Tech; Complete Time: 08:23 sp3 03/25 08:05 Order name: IV Saline Lock; Complete Time: 08:23 sp3 03/25 08:05 Order name: Labs collected and sent; Complete Time: 08:23 sp3 03/25 08:05 Order name: O2 Sat Monitoring; Complete Time: 08:06 sp3 03/25 08:36 Order name: Labs - recollect needed: recollect green top; Complete Time: 09:02 bd Administered Medications: No medications were administered Disposition Summary: 03/25/23 09:49 Discharge Ordered Notes: Location: Home sp3 Condition: Stable sp3 Diagnosis - Syncope Near sp3 Followup: sp3 - With: Private Physician - When: Upon discharge from the Emergency Department - Reason: Continuance of care Discharge Instructions: - Near-Syncope sp3 - Discharge Summary Sheet kc6 Forms: - Medication Reconciliation Form sp3 - Thank You Letter sp3 - Antibiotic Education sp3 - Prescription Opioid Use sp3 - Patient Portal Instructions sp3 - Leadership Thank You Letter sp3 - Work release form kc6 Signatures: Dispatcher [employer] Maggie Becerril Setul, MD MD sp3 Rae Pratt RN RN kc6 Corrections: (The following items were deleted from the chart) 08:22 08:21 Constitutional: Negative for fever, chills, and weight loss, Eyes: Negative for sp3 injury, pain, redness, and discharge, Neck: Negative for injury, pain, and swelling, Cardiovascular: Negative for chest pain, palpitations, and edema, Respiratory: Negative for shortness of breath, cough, wheezing, and pleuritic chest pain, Abdomen/GI: Negative for abdominal pain, nausea, vomiting, diarrhea, and constipation, Back: Negative for injury and pain, MS/Extremity: Negative for injury and deformity, Skin: Negative for injury, rash, and discoloration, Neuro: Negative for headache, weakness, numbness, tingling, and seizure, Psych: Negative for depression, anxiety, suicide ideation, homicidal ideation, and hallucinations, Allergy/Immunology: Negative for hives, rash, and allergies, Endocrine: Negative for neck swelling, polydipsia, polyuria, polyphagia, and marked weight changes, Hematologic/Lymphatic: Negative for swollen nodes, abnormal bleeding, and unusual bruising, sp3
--- NOTE | 2023-03-25 09:50 | ER ---
Nurse's Notes [facility] Name: Mahamed Miranda Age: 48 yrs Sex: Male : 1975 Arrival Date: 03/25/2023 Time: 07:40 Bed 8 Private MD: Diagnosis: Syncope Near Presentation: 03/25 08:01 Chief complaint: Patient states: he works at [email or web address] as a cook, became light headed kc6 and sob this morning. nurse there took his bp and it was 216/106. Coronavirus screen: At this time, the client does not indicate any symptoms associated with coronavirus-19. Ebola Screen: No symptoms or risks identified at this time. Initial Sepsis Screen: Does the patient meet any 2 criteria? No. Patient's initial sepsis screen is negative. Does the patient have a suspected source of infection? No. Patient's initial sepsis screen is negative. Risk Assessment: Do you want to hurt yourself or someone else? Patient reports no desire to harm self or others. Onset of symptoms was March 25, 2023. 08:01 Method Of Arrival: Ambulatory 6 08:01 Acuity: ISMAEL 3 kc6 Triage Assessment: 08:03 General: Appears in no apparent distress. comfortable, Behavior is calm, cooperative, kc6 appropriate for age. Pain: Denies pain. EENT: No signs and/or symptoms were reported regarding the EENT system. Neuro: Level of Consciousness is awake, alert, obeys commands, Oriented to person, place, time, situation, Appropriate for age Reports dizziness. Cardiovascular: Denies chest pain, Heart tones S1 S2 present Capillary refill < 3 seconds. Respiratory: Reports shortness of breath Airway is patent Trachea midline Respiratory effort is even, unlabored, Respiratory pattern is regular, symmetrical. GI: No signs and/or symptoms were reported involving the gastrointestinal system. : No signs and/or symptoms were reported regarding the genitourinary system. Derm: No signs and/or symptoms reported regarding the dermatologic system. Skin is intact, is healthy with good turgor, Skin is pink, warm \T\ dry. Musculoskeletal: No signs and/or symptoms reported regarding the musculoskeletal system. Circulation, motion, and sensation intact. Capillary refill < 3 seconds, Range of motion: intact in all extremities. Historical: - Allergies: 08:03 Ibuprofen; kc6 - PMHx: 08:03 Asthma; COPD; diabetes mellitus; Atrial fibrillation; kc6 08:24 colon cancer; kc6 - PSHx: 08:03 None; kc6 - Immunization history:: Adult Immunizations up to date. - Social history:: Smoking status: Patient reports the use of cigarette tobacco products, denies chronic smoking, but will smoke occasionally. Screenin:04 [facility] ED Fall Risk Assessment (Adult) History of falling in the last 3 months, kc6 including since admission No falls in past 3 months (0 pts) Confusion or Disorientation No (0 pts) Intoxicated or Sedated No (0 pts) Impaired Gait No (0 pts) Mobility Assist Device Used No (0 pt) Altered Elimination No (0 pt) Score/Fall Risk Level 0 - 2 = Low Risk. Abuse screen: Denies threats or abuse. Denies injuries from another. Nutritional screening: No deficits noted. Tuberculosis screening: No symptoms or risk factors identified. Assessment: 08:04 Reassessment: please see triage assessment. kc6 09:04 Reassessment: Patient appears in no apparent distress at this time. No changes from kc6 previously documented assessment. Patient and/or family updated on plan of care and expected duration. Pain level reassessed. Patient is alert, oriented x 3, equal unlabored respirations, skin warm/dry/pink. Vital Signs: 08:01 BP 138 / 90; Pulse 98; Resp 16 S; Temp 98.2(O); Pulse Ox 93% on R/A; Weight 106.59 kg kc6 (R); Height 6 ft. 3 in. (R); 09:12 BP 119 / 79; Pulse 79; Resp 18 S; Pulse Ox 98% on R/A; kc6 08:01 Body Mass Index 29.37 (106.59 kg, 190.5 cm) kc6 ED Course: 07:43 Patient arrived in ED. mg5 07:57 Rosie Bartholomew MD is Attending Physician. sp3 08:01 Rae Pratt, AZN is Primary Nurse. kc6 08:03 Triage completed. kc6 08:03 Arm band placed on. kc6 08:04 Patient has correct armband on for positive identification. Placed in gown. Bed in low kc6 position. Call light in reach. Side rails up X 1. Client placed on continuous cardiac and pulse oximetry monitoring. NIBP monitoring applied. 08:04 Patient maintains SpO2 saturation greater than 95% on room air. kc6 08:24 Missed attempt(s): 20 gauge in right antecubital area. Inserted saline lock: 20 gauge kc6 in left antecubital area, using aseptic technique. Blood collected. 08:25 CT Head Brain wo Cont In Process Unspecified. EDMS 08:33 XRAY Chest (1 view) In Process Unspecified. EDMS 10:02 No provider procedures requiring assistance completed. IV discontinued, intact, kc6 bleeding controlled, No redness/swelling at site. Pressure dressing applied. Administered Medications: No medications were administered Medication: 10:02 VIS not applicable for this client. kc6 Outcome: 09:49 Discharge ordered by . sp3 10:02 Discharged to home ambulatory, kc6 10:02 Condition: improved 10:02 Discharge instructions given to patient, Instructed on discharge instructions, follow up and referral plans. Demonstrated understanding of instructions, follow-up care, 10:03 Patient left the ED. kc6 Signatures: Dispatcher [employer] Rosie Hatch MD MD sp3 Rae Pratt RN RN kc6 Sharon Meyer mg5
[2023-03-25 10:24] VITALS: TEMP 98.2
[2023-03-25 10:26] VITALS: BP 119/79; O2SAT 98
--- NOTE | 2023-03-29 14:28 | EKG ---
Test Date: 2023-03-25 Test Time: 08:12:50 Vehicle Upholsterer: ANTOINETTE MEASUREMENT RESULTS: Intervals: Rate: 94 ND: 122 QRSD: 84 QT: 358 QTc: 447 [place]: P: 44 ND: 122 QRS: 60 T: 53 INTERPRETIVE STATEMENTS: Normal sinus rhythm Nonspecific T wave abnormality Abnormal ECG Compared to ECG 02/23/2023 04:58:16 No significant changes Electronically Signed On 03-29-23 14:15:39 [employer] by Rasta Carl
== END 2023-03-25 10:03 | disposition home or self-care (01) ==
LOC: ER 07:40
DX: R55 Syncope and collapse (principal); J44.9 Chronic obstructive pulmonary disease, unspecified; I48.91 Unspecified atrial fibrillation; F17.210 Nicotine dependence, cigarettes, uncomplicated; Z88.6 Allergy status to analgesic agent
CPT/HCPCS: 36415; 70450; 71045; 80048; 80076; 83735; 83880; 84484; 85025; 93005; 99284

== ENCOUNTER 2023-04-16 07:05 | Emergency (ER) | payer OTHER ==
[2023-04-16] MEDS ORDERED: METHYLPREDNISOLONE 125 MG INJ ONE (08:17)
[2023-04-16] MEDS ORDERED: ALBUTEROL 2.5 MG/3 ML NEB SOL ONE (08:17)
[2023-04-16] MEDS ORDERED: IPRATROPIUM BROM 0.5MG/2.5ML ONE (08:17)
--- NOTE | 2023-04-16 08:23 | RAD REPORT ---
EXAM DESCRIPTION: Trell Elder (2 Views)04/16/2023 8:08 am CLINICAL HISTORY: Cough COMPARISON: March 25, 2023 FINDINGS: The lungs appear clear of acute infiltrate. The heart is normal size IMPRESSION: No acute abnormalities displayed
--- NOTE | 2023-04-16 08:46 | ER ---
Nurse's Notes [facility] [place] Name: Mahamed Miranda Age: 48 yrs Sex: Male : 1975 Arrival Date: 04/16/2023 Time: 07:05 Bed 13 Private MD: Diagnosis: COPD/ Chronic obstructive pulmonary disease with (acute) exacerbation;Essential (primary) hypertension Presentation: 04/16 07:15 Chief complaint: Patient states: Cough, congestion, sore throat, fatigue, DOBSON since ll1 midnight. No fever. Needs work note. Coronavirus screen: Vaccine status: Patient reports receiving the 2nd dose of the covid vaccine. Client denies travel out of the [place] in the last 14 days. chills, congestion, cough unrelated to allergies, fatigue, headache, sore throat, Client presents with at least one sign or symptom that may indicate coronavirus-19. Standard/surgical mask placed on the client. Ebola Screen: Patient denies travel to an Ebola-affected area in the 21 days before illness onset. Initial Sepsis Screen: Does the patient meet any 2 criteria? No. Patient's initial sepsis screen is negative. Does the patient have a suspected source of infection? Yes: Productive cough/pneumonia. Risk Assessment: Do you want to hurt yourself or someone else? Patient reports no desire to harm self or others. Onset of symptoms was April 16, 2023. 07:15 Method Of Arrival: Ambulatory ll1 07:15 Acuity: ISMAEL 4 ll1 Triage Assessment: 07:16 General: Appears in no apparent distress. Behavior is calm, cooperative, appropriate ll1 for age. Pain: Denies pain. EENT: Reports nasal congestion pain when swallowing. Cardiovascular: Reports chest pain, fatigue, shortness of breath. Respiratory: Reports cough that is. Historical: - Allergies: 07:14 Ibuprofen; ll1 - PMHx: 07:14 Asthma; Atrial fibrillation; colon cancer; COPD; diabetes mellitus; Hypertensive ll1 disorder; - PSHx: 07:14 None; ll1 - Immunization history:: Adult Immunizations up to date. - Social history:: Smoking status: Patient reports the use of cigarette tobacco products, smokes one-half pack cigarettes per day. Screenin:37 [facility] ED Fall Risk Assessment (Adult) History of falling in the last 3 months, ko1 including since admission No falls in past 3 months (0 pts) Confusion or Disorientation No (0 pts) Intoxicated or Sedated No (0 pts) Impaired Gait No (0 pts) Mobility Assist Device Used No (0 pt) Altered Elimination No (0 pt) Score/Fall Risk Level 0 - 2 = Low Risk Oriented to surroundings, Maintained a safe environment, Educated pt \T\ family on fall prevention, incl call for assistance when getting out of bed, Assessed \T\ reinforced patient's understanding of fall precautions, Provided non-skid footwear, Hourly rounding (assess needs \T\ fall precautionary measures) done, Used ambulatory aids as needed (educated on \T\ assisted with). Abuse screen: Denies threats or abuse. Denies injuries from another. Nutritional screening: No deficits noted. Tuberculosis screening: No symptoms or risk factors identified. Assessment: 07:37 Pain: Denies pain. Neuro: No deficits noted. Cardiovascular: No deficits noted. ko1 Respiratory: No deficits noted. GI: No deficits noted. : No deficits noted. EENT: Reports nasal congestion pain in forehead. Derm: No deficits noted. Musculoskeletal: No deficits noted. Vital Signs: 07:15 BP 142 / 77; Pulse 72; Resp 16; Temp 98; Pulse Ox 98% on R/A; Weight 108.86 kg; Height ll1 6 ft. 3 in. ; Pain 8/10; 07:37 BP 143 / 85; Pulse 72; Resp 16; Pulse Ox 97% ; ko1 08:55 BP 146 / 78; Pulse 88; Resp 16; Pulse Ox 100% ; ko1 07:15 Body Mass Index 30.00 (108.86 kg, 190.5 cm) ll1 07:15 Pain Scale: Adult ll1 ED Course: 07:08 Patient arrived in ED. mg5 07:11 Dorene Rodriguez, ZAN is Primary Nurse. ko1 07:12 Ryan Cuello DO is Attending Physician. ms3 07:14 Arm band placed on Patient placed in an exam room, on a stretcher. ll1 07:16 Triage completed. ll1 07:37 Patient has correct armband on for positive identification. Bed in low position. Call ko1 light in reach. Side rails up X 1. Provided Education on: na. Pulse ox on. NIBP on. Door closed. Noise minimized. Lights dimmed. 07:37 No provider procedures requiring assistance completed. Patient did not have IV access ko1 during this emergency room visit. 07:59 Flu Sent. ko1 08:08 Chest Pa And Lat (2 Views) XRAY In Process Unspecified. EDMS 08:45 Caleb Overton MD is Referral Physician. ms3 Administered Medications: 08:10 Drug: Albuterol Inhalation 2.5 mg Inhalation every 20 minutes x3 Route: Inhalation; ko1 08:11 Drug: Ipratropium Inhalation Aerosol 0.5 mg Inhalation once Route: Inhalation; ko1 08:54 Follow up: Response: No adverse reaction ko1 08:18 CANCELLED (Other Intervention Used): [id number] mg IVP once ko1 08:21 Drug: MethylPrednisoLONE IVP 125 mg IVP once; IM Route: IVP; Site: Other; ko1 08:54 Follow up: Response: No adverse reaction ko1 08:31 Drug: Albuterol Inhalation 2.5 mg Inhalation every 20 minutes x3 Route: Inhalation; ko1 08:45 Drug: Albuterol Inhalation 2.5 mg Inhalation every 20 minutes x3 Route: Inhalation; ko1 08:54 Follow up: Response: No adverse reaction ko1 Medication: 07:37 VIS not applicable for this client. ko1 Outcome: 08:46 Discharge ordered by MD. ms3 08:58 Discharged to home ambulatory, ko1 08:58 Condition: improved 08:58 Discharge instructions given to patient, Instructed on discharge instructions, follow up and referral plans. medication usage, Demonstrated understanding of instructions, follow-up care, medications, Prescriptions given X 1, 08:58 Patient left the ED. ko1 Signatures: Dispatcher [employer] EDMN Morena Calixto, RN RN ll1 Ryan Cuello DO DO ms3 Dorene Rodriguez, ZAN RN ko1 Sharon Meyer mg5
--- NOTE | 2023-04-16 08:46 | EDPHYS ---
Physician Documentation [facility] Name: Mahamed Miranda Age: 48 yrs Sex: Male : 1975 Arrival Date: 04/16/2023 Time: 07:05 Bed 13 Private MD: ED Physician Ryan Cuello HPI: 04/16 07:47 This 48 yrs old Male presents to ER via Ambulatory with complaints of Cold Symptoms, ms3 Flu Symptoms. 07:47 48-year-old male with past medical history of asthma, atrial fibrillation, colon ms3 cancer, COPD, diabetes, hypertension presents to the emergency department for congestion that began at midnight. Patient states he took a home COVID test that was negative. Patient endorses chills, cough, vomiting. Patient states he has chest pain only when coughing that he rates an 8/10 and describes as throbbing. patient denies shortness of breath or fever.. Historical: - Allergies: 07:14 Ibuprofen; ll1 - PMHx: 07:14 Asthma; Atrial fibrillation; colon cancer; COPD; diabetes mellitus; Hypertensive ll1 disorder; - PSHx: 07:14 None; ll1 - Immunization history:: Adult Immunizations up to date. - Social history:: Smoking status: Patient reports the use of cigarette tobacco products, smokes one-half pack cigarettes per day. ROS: 07:47 Constitutional: Negative for fever, and chills. Neck: Negative for injury, pain, and ms3 swelling, Cardiovascular: Negative for chest pain, and palpitations. 07:47 Abdomen/GI: Negative for abdominal pain, nausea, vomiting, diarrhea, and constipation, MS/Extremity: Negative for injury and deformity, Skin: Negative for injury, rash, and discoloration, 07:47 Respiratory: Positive for cough, 07:47 All other systems are negative, Exam: 07:47 Constitutional: This is a well developed, well nourished patient who is awake, alert, ms3 and in no acute distress. Head/Face: Normocephalic, atraumatic. Neck: Trachea midline, no cervical lymphadenopathy. Supple, full range of motion without nuchal rigidity, or vertebral point tenderness. No Meningismus. Chest/axilla: Normal chest wall appearance and motion. Nontender with no deformity. Cardiovascular: Regular rate and rhythm with a normal S1 and S2. No gallops, murmurs, or rubs. Normal PMI, no JVD. No pulse deficits. 07:47 Abdomen/GI: Soft, non-tender, with normal bowel sounds. No distension or tympany. No guarding or rebound. No evidence of tenderness throughout. Skin: Warm, dry with normal turgor. Normal color with no rashes, no lesions, and no evidence of cellulitis. 07:47 Respiratory: the patient does not display signs of respiratory distress, Respirations: normal, Breath sounds: wheezing: Vital Signs: 07:15 BP 142 / 77; Pulse 72; Resp 16; Temp 98; Pulse Ox 98% on R/A; Weight 108.86 kg; Height ll1 6 ft. 3 in. ; Pain 8/10; 07:37 BP 143 / 85; Pulse 72; Resp 16; Pulse Ox 97% ; ko1 08:55 BP 146 / 78; Pulse 88; Resp 16; Pulse Ox 100% ; ko1 07:15 Body Mass Index 30.00 (108.86 kg, 190.5 cm) ll1 07:15 Pain Scale: Adult ll1 MDM: 07:26 Patient medically screened. ms3 07:47 Differential diagnosis: flu, URI, COPD exacerbation vs PNA. ms3 08:59 Data reviewed: vital signs, nurses notes, lab test result(s), radiologic studies, and ms3 as a result, I will discharge patient. I considered the following discharge prescriptions or medication management in the emergency department Medications were administered in the Emergency Department. See MAR. Independent interpretation of the following test(s) in the Emergency Department X-Ray: My interpretation is Chest x-ray images reviewed by me does not reveal pneumonia. Counseling: I had a detailed discussion with the patient and/or guardian regarding the historical points, exam findings, and any diagnostic results supporting the discharge/admit diagnosis, lab results, radiology results, the need for outpatient follow up, to return to the emergency department if symptoms worsen or persist or if there are any questions or concerns that arise at home. ED course: Discussed labs and x-ray with patient. Patient to follow-up with Dr. Chaney in 2 to 3 days. Patient understands and agrees with plan. All questions were answered. Return precautions discussed include worsening symptoms, shortness of breath with chest pain, or any other concerns. On reevaluation patient symptoms improved, no respiratory distress noted, patient speaking full sentences, ambulatory in emergency department. 04/16 07:49 Order name: Flu; Complete Time: 08:39 ms3 04/16 07:49 Order name: Chest Pa And Lat (2 Views) XRAY; Complete Time: 08:39 ms3 Administered Medications: 08:10 Drug: Albuterol Inhalation 2.5 mg Inhalation every 20 minutes x3 Route: Inhalation; ko1 08:11 Drug: Ipratropium Inhalation Aerosol 0.5 mg Inhalation once Route: Inhalation; ko1 08:54 Follow up: Response: No adverse reaction ko1 08:18 CANCELLED (Other Intervention Used): [id number] mg IVP once ko1 08:21 Drug: MethylPrednisoLONE IVP 125 mg IVP once; IM Route: IVP; Site: Other; ko1 08:54 Follow up: Response: No adverse reaction ko1 08:31 Drug: Albuterol Inhalation 2.5 mg Inhalation every 20 minutes x3 Route: Inhalation; ko1 08:45 Drug: Albuterol Inhalation 2.5 mg Inhalation every 20 minutes x3 Route: Inhalation; ko1 08:54 Follow up: Response: No adverse reaction ko1 Disposition Summary: 04/16/23 08:46 Discharge Ordered Notes: Location: Home ms3 Condition: Stable ms3 Diagnosis - COPD/ Chronic obstructive pulmonary disease with (acute) exacerbation ms3 - Essential (primary) hypertension ms3 Followup: ms3 - With: Caleb Overton MD - When: 2 - 3 days - Reason: Recheck today's complaints Discharge Instructions: - Discharge Summary Sheet ll1 - Chronic Obstructive Pulmonary Disease ms3 - Hypertension, Adult ms3 - DASH Eating Plan ms3 Forms: - Work release form ll1 - Medication Reconciliation Form ms3 - Thank You Letter ms3 - Antibiotic Education ms3 - Prescription Opioid Use ms3 - Patient Portal Instructions ms3 - Leadership Thank You Letter ms3 Prescriptions: - Prednisone 20 mg Oral Tablet - take 2 tablets ORAL route once daily for 5 days; 10 tablet; Refills: 0, Product ms3 Selection Permitted Signatures: Dispatcher [employer] Morena Mitchell RN RN ll1 Ryan Cuello DO DO ms3 Dorene Rodriguez RN RN ko1 Corrections: (The following items were deleted from the chart) 08:18 07:49 MethylPrednisoLONE IVP 125 mg IVP once ordered. ms3 ko1 07:50 MethylPrednisoLONE IVP 125 mg IVP once ordered. ko1 ko1 08:17 MethylPrednisoLONE IVP 125 mg IVP once ordered. ko1 ko1
[2023-04-16 09:03] VITALS: TEMP 98
[2023-04-16 09:06] VITALS: BP 146/78; O2SAT 100
== END 2023-04-16 08:58 | disposition home or self-care (01) ==
LOC: ER 07:05
DX: J44.1 Chronic obstructive pulmonary disease with (acute) exacerbation (principal); I10 Essential (primary) hypertension
CPT/HCPCS: 87804 ×2; 71046; 96374; 99285; J7613; J7644; J2930